=== PATIENT | male | born 1965 | race Caucasian/White ===

== ENCOUNTER 2016-06-04 12:30 | Emergency (ER) | payer OTHER ==
[~2016-06-04] VITALS: Ht 188 cm; Wt 90.7 kg
--- NOTE | 2016-06-04 13:00 | RAD ---
Right shoulder, 3 views, 06/04/2016: History: Fall The glenohumeral articulation is unremarkable. There is a fracture of the right clavicle just distal to its midpoint. There is mild superior displacement of the distal end of the proximal fracture fragment at the fracture site. IMPRESSION: Acute right clavicular fracture.
--- NOTE | 2016-06-04 13:03 | PHYS DOC ---
Past Medical History Past Medical History: No Pertinent History Past Surgical History: No Surgical History Adult General Chief Complaint Chief Complaint: SHOULDER INJURY HPI HPI Patient is a 50 year old presents emergency partner stating that he went out turkey today when he slipped and fell on his right shoulder. He states that he is having pain over the clavicle area. He has equal strength bilaterally with upper extremities. Peripheral pulses are 2+ cap refill brisk less than 2 seconds. Review of Systems Review of Systems Constitutional: Denies fever or chills [] Eyes: Denies change in visual acuity, redness, or eye pain [] HENT: Denies nasal congestion or sore throat [] Respiratory: Denies cough or shortness of breath [] Cardiovascular: No additional information not addressed in HPI [] GI: Denies abdominal pain, nausea, vomiting, bloody stools or diarrhea [] : Denies dysuria or hematuria [] Musculoskeletal: Denies back pain. Right shoulder and clavicle pain Integument: Denies rash or skin lesions [] Neurologic: Denies headache, focal weakness or sensory changes [] Physical Exam Physical Exam Constitutional: Well developed, well nourished, no acute distress, non-toxic appearance. [] HENT: Normocephalic, atraumatic, bilateral external ears normal, oropharynx moist, no oral exudates, nose normal. [] Eyes: PERRLA, EOMI, conjunctiva normal, no discharge. [] Neck: Normal range of motion, no tenderness, supple, no stridor. [] Cardiovascular:Heart rate regular rhythm, no murmur [] Lungs & Thorax: Bilateral breath sounds clear to auscultation [] Skin: Warm, dry, no erythema, no rash. [] Back: No tenderness Extremities: Right clavicle tenderness, no cyanosis, no clubbing, ROM intact, no edema. No discoloration no bruising noted there is step-offs noted. No crepitus no deformities noted Neurologic: Alert and oriented X 3, normal motor function, normal sensory function, no focal deficits noted. [] Psychologic: Affect normal, judgement normal, mood normal. [] EKG EKG [] Radiology/Procedures Radiology/Procedures [] Course & Med Decision Making Course & Med Decision Making Pertinent Labs and Imaging studies reviewed. (See chart for details) Patient will be placed in a sling he will be provided hydrocodone for severe pain and discomfort with recommendations for ibuprofen 800 mg every 8 hours with food stop taking few develop an upset stomach. We'll speak with orthopedic for further recommendations. Patient will be provided with signs symptoms to return back to emergency department. Patient agrees with discharge instructions treatment regimens and follow-up recommendations. [address] Ramos with recommendations to followup next week. [] [place] Disclaimer Dragon Disclaimer This electronic medical record was generated, in whole or in part, using a voice recognition dictation system. Departure Departure Impression: Primary Impression: Right clavicle fracture Disposition: HOME, SELF-CARE Condition: STABLE Referrals: UNKNOWN PCP NAME (PCP) Patient Instructions: Arm Sling Use, [id number], Clavicle Fracture, Easy-to- Read Additional Instructions: X-rays were positive for fracture of the right clavicle. Ibuprofen 800 mg every 8 hours for pain and discomfort. Hydrocodone for severe pain and discomfort this medication will cause drowsiness do not take any be alert and oriented. Ice packs on 20 minutes off 20 minutes several times a day. Wear the sling to help with support and also help with pain management. Follow-up with orthopedic next week. Return back to emergency prior signs symptoms of become worse. Scripts Hydrocodone/Apap 5-325 ([place] 5-325 Tablet)1 Each Tablet1 Tab PO PRN Q6HRS PRN PAIN #20 TAB Prov:GARRISON VELÁSQUEZ APRN 06/04/16 GARRISON VELÁSQUEZ APRN Jun 04, 2016 13:03
[2016-06-04 13:10] VITALS: BP 158/82
[2016-06-04] MEDS ORDERED: HYDR-971 PO (13:12)
== END 2016-06-04 13:20 | disposition home or self-care (01) ==
LOC: ER 12:30
DX: S42.001A Fracture of unspecified part of right clavicle, initial encounter for closed fracture (principal); W01.0XXA Fall on same level from slipping, tripping and stumbling without subsequent striking against object, initial encounter; Y93.89 Activity, other specified; Y92.89 Other specified places as the place of occurrence of the external cause; Y99.8 Other external cause status
CPT/HCPCS: 73030; 99284